=== PATIENT | female | born 1950 | race Caucasian/White ===

== ENCOUNTER 2020-04-20 08:59 | Outpatient (CLI) | payer MEDICARE | END 2020-04-20 09:00 | disposition home or self-care (01) | LOC: DI 08:59 | PROVIDERS: ATTEND Physician Assistant | DX: R01.1 Cardiac murmur, unspecified (principal); I08.1 Rheumatic disorders of both mitral and tricuspid valves; R07.9 Chest pain, unspecified | CPT/HCPCS: 93005; 93306 ==

== ENCOUNTER 2020-04-20 09:25 | Outpatient (CLI) | payer MEDICARE | END 2020-04-20 09:26 | disposition home or self-care (01) | LOC: RT 09:25 | PROVIDERS: ATTEND Physician Assistant | DX: R07.9 Chest pain, unspecified (principal) | CPT/HCPCS: 93005 ==

== ENCOUNTER 2021-05-29 11:14 | Outpatient (CLI) | payer MEDICARE, OTHER ==
[2021-05-29 11:34] LABS: BASOPHILS # (AUTO) 0.1 10^3/uL (0.0-0.1); BASOPHILS % (AUTO) 0.8 %; EOSINOPHILS # (AUTO) 0.1 10^3/uL (0.0-0.7); EOSINOPHILS % (AUTO) 2.2 %; HCT - HEMATOCRIT 37.6 % (37.0-47.0); HGB - HEMOGLOBIN 12.6 g/dL (12.0-16.0); LYMPHOCYTES # (AUTO) 3.1 10^3/uL (1.5-3.5); LYMPHOCYTES % (AUTO) 49.3 %; MEAN CORPUSCULAR HEMOGLOBIN 32.1 pg (27.0-31.0); MEAN CORPUSCULAR HGB CONC 33.5 g/dL (32.0-36.0); MEAN CORPUSCULAR VOLUME 95.7 fL (81.0-99.0); MEAN PLATELET VOLUME 10.2 fL (7.9-10.8); MONOCYTES # (AUTO) 0.6 10^3/uL (0.0-1.0); MONOCYTES % (AUTO) 8.9 %; NEUTROPHILS # (AUTO) 2.5 10^3/uL (1.5-6.6); NEUTROPHILS % (AUTO) 38.6 %; PLT - PLATELET COUNT 329 10^3/uL (130-450); RED BLOOD COUNT 3.93 10^6/uL (4.20-5.40); RED CELL DISTRIBUTION WIDTH 13.2 % (12.0-15.0); WHITE BLOOD COUNT 6.4 x10^3/uL (4.8-10.8)
[2021-05-29 11:52] LABS: ALBUMIN 4.3 g/dL (3.2-5.5); ALBUMIN/GLOBULIN RATIO 1.4 (1.0-2.2); ALKALINE PHOSPHATASE 74 IU/L (42-121); ALT ALANINE AMINOTRANSFERASE 17 IU/L (10-60); AST ASPARTATE AMINOTRANSFERASE 18 IU/L (10-42); BILIRUBIN,TOTAL 0.7 mg/dL (0.2-1.0); BUN - BLOOD UREA NITROGEN 22 mg/dL (6-20); CALCIUM 9.3 mg/dL (8.5-10.3); CARBON DIOXIDE - CO2 25 mmol/L (21-32); CHLORIDE 99 mmol/L (101-111); CHOL/HDL RATIO 3.2 (<4.4); CHOLESTEROL 256 mg/dL; GFR - MDRD 55 (>89); GLUCOSE 102 mg/dL (70-100); HDL CHOLESTEROL 81 mg/dL; LDL CHOLESTEROL,CALCULATED 153 mg/dL; LDL/HDL RATIO 1.9 (<4.4); POTASSIUM 3.6 mmol/L (3.5-5.0); SODIUM 136 mmol/L (135-145); TOTAL PROTEIN 7.4 g/dL (6.7-8.2); TRIGLYCERIDES 109 mg/dL; VLDL CHOLESTEROL 22 mg/dL
[2021-05-29 12:03] LABS: THYROID STIMULATING HORMONE 2.77 uIU/mL (0.34-5.60)
== END 2021-05-29 11:15 | disposition home or self-care (01) ==
LOC: LAB 11:14
PROVIDERS: ATTEND Family Medicine
DX: Z00.00 Encounter for general adult medical examination without abnormal findings (principal)
CPT/HCPCS: 36415; 80053; 80061; 83721; 84443; 85025

== ENCOUNTER 2021-07-11 13:22 | Outpatient (CLI) | payer MEDICARE, OTHER | END 2021-07-11 13:23 | disposition home or self-care (01) | LOC: RT 13:22 | PROVIDERS: ATTEND Internal Medicine | DX: J44.9 Chronic obstructive pulmonary disease, unspecified (principal); Z87.891 Personal history of nicotine dependence | CPT/HCPCS: 94010; 94729 ==

== ENCOUNTER 2021-07-18 13:38 | Outpatient (CLI) | payer MEDICARE, OTHER ==
--- NOTE | 2021-07-18 15:38 | CT Report ---
PROCEDURE: CHEST WO INDICATIONS: COPD TECHNIQUE: Noncontrast 1mm axial images were acquired from the pulmonary apices to the posterior costophrenic an gles. Axial 5 mm soft tissue kernel reconstructions were performed as well as 8 mm axial MIP and cor onal and sagittal 5 mm reformations. For radiation dose reduction, the following was used: automate d exposure control, adjustment of mA and/or kV according to patient size. COMPARISON: None FINDINGS: Image quality: Excellent. Lungs and pleura: No acute air space opacities. No interstitial pulmonary opacities. No air trappin g. No bronchiectasis. No pleural effusions or pneumothorax. Central and peripheral airways are paten t and normal in caliber. Mediastinum: Heart size is normal. Mild calcification of the coronary vasculature. No pericardial ef fusion. No mediastinal adenopathy by size criteria. Thoracic aorta and central pulmonary arteries a re normal in size. Esophagus is normal in caliber. No hiatal hernia. Bones and chest wall: No suspicious bony lesions. No vertebral body compression fractures. No axil latha or supraclavicular adenopathy by size criteria. The thyroid is normal in size and there are no incidental findings. Abdomen: Visualized upper abdominal solid organs and bowel loops appear normal in the absence of con trast. IMPRESSION: 1. No acute process. 2. No evidence of interstitial lung disease. 3. Coronary artery disease. Reviewed by: Garland Leger MD on 07/18/2021 3:36 PM PDT Approved by: Garland Leger MD on 07/18/2021 3:36 PM PDT Station ID: [id number]
== END 2021-07-18 13:39 | disposition home or self-care (01) ==
LOC: DI 13:38
PROVIDERS: ATTEND Internal Medicine
DX: J44.9 Chronic obstructive pulmonary disease, unspecified (principal); I25.10 Atherosclerotic heart disease of native coronary artery without angina pectoris

== ENCOUNTER 2021-12-10 10:12 | Outpatient (CLI) | payer MEDICARE ==
[2021-12-10 10:35] LABS: CALCIUM 9.9 mg/dL (8.5-10.3); CREATININE 0.9 mg/dL (0.4-1.0); POTASSIUM 3.9 mmol/L (3.5-5.0)
== END 2021-12-10 10:13 | disposition home or self-care (01) ==
LOC: LAB 10:12
PROVIDERS: ATTEND Family Medicine
DX: I10 Essential (primary) hypertension (principal)
CPT/HCPCS: 36415; 80048

== ENCOUNTER 2022-01-14 09:31 | Outpatient (CLI) | payer MEDICARE, OTHER ==
--- NOTE | 2022-01-20 09:34 | Mammography Report ---
BILATERAL DIGITAL DIAGNOSTIC MAMMOGRAM 3D/2D WITH MEDIOLATERAL: 01/14/2022 CLINICAL: Palpable left breast lump X 2, marked. Due for screening exam. Baseline exam. No prior exams were available for comparison. Both breasts are heterogeneously dense, which may obscure small masses (category c / 51-75% glandular tissue). There is a focal asymmetry in the right breast central to the nipple in the retroareolar region. There is a 0.9 cm oval mass with a circumscribed margin in the left breast at 11 o'clock 6 cm from th e nipple. This correlates as palpated. There also is a 0.6 cm oval fat containing mass with a circumscribed margin in the left breast at 11 o'clock 9 cm from the nipple. This correlates as palpated. No other significant masses or calcifications are seen in either breast. IMPRESSION: INCOMPLETE: NEEDS ADDITIONAL IMAGING EVALUATION The focal asymmetry in the right breast central to the nipple in the retroareolar region is indetermi ignacio. An ultrasound is recommended. The 0.9 cm oval mass in the left breast at 11 o'clock anterior depth is indeterminate. An ultrasound is recommended. The 0.6 cm oval fat containing mass in the left breast at 11 o'clock middle depth is indeterminate. An ultrasound is recommended. No priors are available for review on 01/14/2022 at 11am. Patient was offered to schedule this exam after priors become available in PACS, but wished to have t his exam performed sooner. Based on the Tyrer Cuzick model (a risk assessment model) the patients lifetime risk is 6.7% and her 10 year risk is 4.6%. According to the ACR, ACS, and NCCN guidelines, an annual breast MRI exam [place] g with mammogram is recommended if the patients lifetime risk is 20% or greater. This exam was interpreted at Station ID: [id number]. NOTE: For mammograms, a report in lay terms will be sent to the patient. Approximately 15% of breast malignancies will not be visualized mammographically. In the management of a palpable breast mass, a negative mammogram must not discourage biopsy of a clinically suspicious lesion. Electronically Signed By: Dustin De La Cruz M.D. lc/:01/15/2022 11:55:21 ACR BI-RADS Category 0: Incomplete 3340F PARENCHYMAL PATTERN: (D) - The breast(s) demonstrate(s) heterogeneously dense fibroglandular parenchy ma. BI-RADS CATEGORY: (0) - 0 Ultrasound [id number] Immediate follow-up LATERALITY: (B)
--- NOTE | 2022-01-20 09:34 | Ultrasound Report ---
LIMITED ULTRASOUND OF LEFT BREAST: 01/14/2022 CLINICAL: Palpable left breast lumps. H/o trauma with bruising to left breast. Pt. states h/o lipomas . Comparison is made to exam dated: 01/14/2022 mammogram - [facility]. Color flow and real-time ultrasound of the left breast 11 o'clock region were performed. Martinez scale images of the real-time examination were reviewed. There is a 0.8 cm x 0.6 cm x 0.6 cm oil cyst vs. circumscribed mass in the left breast at 11 o'clock anterior depth 6 cm from the nipple. There also is a 0.6 cm x 1 cm x 0.5 cm mass in the left breast at 11 o'clock middle depth 9 cm from t he nipple. This mass is hyperechoic. This correlates with mammography findings. IMPRESSION: PROBABLY BENIGN The 0.8 cm x 0.6 cm x 0.6 cm developing oil cyst vs. circumscribed mass in the left breast at 11 o'cl ock anterior depth is probably benign. A follow-up in 3 months is recommended. The 0.6 cm x 1 cm x 0.5 cm mass in the left breast at 11 o'clock middle depth is probably benign. A follow-up in 3 months is recommended. Followup in 3 months is recommended with mammography and ultrasound. Radiologist was informed indirectly from the [place] technologist that the patient had trauma correlating to the palpable abnormalities, suggesting fat necrosis as the etiology. Radiologist Dr. De La Cruz intended to discuss with the patient by telephone regarding the utility of short term 3 month followup, versus biopsy if the history turned out to be discordant. Patient initially declined to speak with radiologist Dr. De La Cruz (remote) and Dr. Mejias (on-site) on day of examination. She left clinic without speaking to a doctor on 01/14. Technologist informed Dr. De La Cruz that the patient would prefer to have a biopsy. A call was made on 01/15 and biopsy was scheduled. This would be an ultrasound guided biopsy of both masses described above. Biopsy is a reasonable option for these findings to exclude malignancy. This exam was interpreted at Station ID: [id number]. Electronically Signed By: Dustin De La Cruz M.D. lc/:01/20/2022 08:40:09 Ultrasound BI-RADS: 3 Probably benign BI-RADS CATEGORY: (3) - 3 Biopsy follow-up [id number] Immediate follow-up LATERALITY: (B)
--- NOTE | 2022-01-20 09:34 | Ultrasound Report ---
LIMITED ULTRASOUND OF RIGHT BREAST: 01/14/2022 CLINICAL: Patient returns today to evaluate an asymmetry in the right breast. Comparison is made to exam dated: 01/14/2022 mammogram - [facility]. Real-time ultrasound of the right breast retroareolar was performed. Martinez scale images of the real-t dony examination were reviewed. IMPRESSION: NEGATIVE There is no sonographic evidence of malignancy. There is no abnormality seen in the right breast to correspond with the mammographic asymmetry in the sub-areolar depth which likely represents normal fibroglandular tissue. Return to annual mammogram screening schedule is recommended. This exam was interpreted at Station ID: [id number]. Electronically Signed By: Dustin De La Cruz M.D. lc/:01/14/2022 12:15:14 Ultrasound BI-RADS: 1 Negative BI-RADS CATEGORY: (1) - 1 RECOMMENDATION: (ANNUAL) - Recommend routine annual screening mammography. [id number] return to screening LATERALITY: (B)
== END 2022-01-14 09:32 | disposition home or self-care (01) ==
LOC: DI 09:31
PROVIDERS: ATTEND Nurse Practitioner Family
DX: N63.22 Unspecified lump in the left breast, upper inner quadrant (principal)

== ENCOUNTER 2022-01-28 09:37 | Outpatient (CLI) | payer MEDICARE, OTHER ==
[2022-01-28] MEDS ORDERED: LIDOCAINE-MPF 1% 5 ML VIAL ONE (09:43)
[2022-01-28] MEDS ORDERED: LIDOCAINE 1%-EPI 1:100000 20 ML MDV ONE (09:43)
[2022-01-28] MEDS ORDERED: LIDOCAINE 1%-EPI 1:100000 20 ML MDV SUBQ ONE (11:16)
[2022-01-28] MEDS ORDERED: LIDOCAINE-MPF 1% 5 ML VIAL TD ONE (11:17)
--- NOTE | 2022-01-30 11:05 | Mammography Report ---
UNILATERAL LEFT DIGITAL DIAGNOSTIC MAMMOGRAM WITH LATEROMEDIAL POST-PROCEDURE IMAGING FOR MARKER PLAC EMENT: 01/28/2022 CLINICAL: Post left breast ultrasound biopsy clip placement imaging. Comparison is made to exams dated: 01/14/2022 mammogram, 01/14/2022 ultrasound, and 01/28/2022 ultra sound biopsy - [facility]. The left breast is heterogeneously dense, which may obscure small masses (category c / 51-75% glandul ar tissue). There is a coil marker clip in the appropriate position in the left breast at 11 o'clock anterior dep th at the biopsy site. IMPRESSION: POST PROCEDURE MAMMOGRAM FOR MARKER PLACEMENT There was a successful marker clip placement in the left breast anterior depth at the biopsy site. This exam was interpreted at Station ID: [id number]. Electronically Signed By: Wicho Mitchell M.D. slc/:01/30/2022 10:00:48 ACR BI-RADS Category Post-procedure mammogram for marker placement PARENCHYMAL PATTERN: (D) - The breast(s) demonstrate(s) heterogeneously dense fibroglandular sheldon holguin. BI-RADS CATEGORY: () - Unspecified - other recall n/a LATERALITY: (B)
--- NOTE | 2022-01-30 11:05 | Ultrasound Report ---
ULTRASOUND GUIDED BIOPSY LEFT BREAST USING VACUUM DEVICE WITH MARKING DEVICE INSERTED AND POST DIGITA L MAMMOGRAPHIC IMAGIN01/28/2022 CLINICAL: Left breast mass. PATIENT CONSENT: Risks (minor bleeding, infection, vasovagal reaction and repeat procedure), benefits and alternatives were explained to the patient and written informed consent was obtained. Correlation is made to exams dated: 01/28/2022 mammogram, 01/14/2022 ultrasound, and 01/14/2022 mamm ogram - [facility]. An ultrasound guided biopsy using real-time ultrasound was performed for the 0.6 cm x 1 cm x 0.5 cm m ass located in the left breast at 11 o'clock middle depth 9 cm from the nipple. This was described o n the previous ultrasound report. The skin was prepped in the usual manner. Local anesthetic was administered to the access site. A s kin lottie was made in the breast. The abnormality was approached from the lateral aspect. A 12 gauge biopsy needle was placed adjacent to the abnormality under ultrasound guidance. Once the needle was documented to be in the correct location, three specimens were obtained using the Curse Encor syste m. A coil clip was inserted into the biopsy cavity. A skin closure strip and a sterile dressing were ap plied to the access site. Post procedure digital mammographic imaging demonstrates the location joss ce at the targeted area and partial removal of the abnormality. The specimens were sent to the [facility] for pathological analysis. IMPRESSION: ULTRASOUND GUIDED BIOPSY BENIGN Ultrasound guided biopsy of the 0.6 cm x 1 cm x 0.5 cm mass in the left breast at 11 o'clock middle d epth 9 cm from the nipple was successful with no apparent post procedure complications. Pathology indicates "Fatty breast tissue with focal fibrous zone." Pathology results are concordant with imaging findings. A follow-up ultrasound in 6 months is recommended to demonstrate stability. Follow-up for the second cyst at 11:00 6 cm from the nipple can also be preformed at that time. This exam was interpreted at Station ID: [id number]. Arcenio Mitchell M.D., jr,slc/:01/30/2022 09:58:59 BI-RADS CATEGORY: () - Ultrasound [id number] 6 month follow-up LATERALITY: (B)
== END 2022-01-28 09:38 | disposition home or self-care (01) ==
LOC: DI 09:37
PROVIDERS: ATTEND Family Medicine
DX: R92.8 Other abnormal and inconclusive findings on diagnostic imaging of breast (principal)
CPT/HCPCS: 19083

== ENCOUNTER 2022-04-04 14:59 | Outpatient (CLI) | payer MEDICARE, OTHER ==
[2022-04-04 15:13] LABS: BILIRUBIN,URINE NEGATIVE (NEGATIVE); GLUCOSE, URINE (UA) NEGATIVE (NEGATIVE); KETONES,URINE (UA) NEGATIVE (NEGATIVE); LEUKOCYTE ESTERASE, URINE NEGATIVE (NEGATIVE); NITRITE,URINE NEGATIVE (NEGATIVE); OCCULT BLOOD,URINE MODERATE (NEGATIVE); PROTEIN,URINE NEGATIVE (NEGATIVE); UROBILINOGEN,URINE 0.2 (NORMAL) E.U./dL (NORMAL)
[2022-04-04 15:14] LABS: CLARITY,URINE CLEAR (CLEAR)
[2022-04-04 15:36] LABS: BACTERIA,URINE None Seen /HPF (None Seen); SQUAMOUS EPITHELIAL CELL,UR FEW Squamous (<= Few); WBC,URINE 0-3 /HPF (0-5)
== END 2022-04-04 15:00 | disposition home or self-care (01) ==
LOC: LAB 14:59
PROVIDERS: ATTEND Family Medicine
DX: N39.8 Other specified disorders of urinary system (principal)
CPT/HCPCS: 81001; 87086

== ENCOUNTER 2023-05-08 14:49 | Outpatient (CLI) | payer MEDICARE, OTHER ==
[2023-05-08 15:06] LABS: BASOPHILS # (AUTO) 0.1 10^3/uL (0.0-0.1); BASOPHILS % (AUTO) 0.6 %; EOSINOPHILS # (AUTO) 0.1 10^3/uL (0.0-0.7); EOSINOPHILS % (AUTO) 1.2 %; HCT - HEMATOCRIT 37.9 % (37.0-47.0); HGB - HEMOGLOBIN 12.7 g/dL (12.0-16.0); LYMPHOCYTES % (AUTO) 46.4 %; MEAN CORPUSCULAR HEMOGLOBIN 32.9 pg (27.0-31.0); MEAN CORPUSCULAR HGB CONC 33.5 g/dL (32.0-36.0); MEAN CORPUSCULAR VOLUME 98.2 fL (81.0-99.0); MEAN PLATELET VOLUME 10.4 fL (7.9-10.8); MONOCYTES # (AUTO) 0.6 10^3/uL (0.0-1.0); MONOCYTES % (AUTO) 7.4 %; NEUTROPHILS # (AUTO) 3.8 10^3/uL (1.5-6.6); NEUTROPHILS % (AUTO) 44.2 %; PLT - PLATELET COUNT 313 10^3/uL (130-450); RED BLOOD COUNT 3.86 10^6/uL (4.20-5.40); RED CELL DISTRIBUTION WIDTH 13.9 % (12.0-15.0); WHITE BLOOD COUNT 8.6 x10^3/uL (4.8-10.8)
[2023-05-08 15:08] LABS: BILIRUBIN,URINE NEGATIVE (NEGATIVE); GLUCOSE, URINE (UA) NEGATIVE (NEGATIVE); KETONES,URINE (UA) NEGATIVE (NEGATIVE); LEUKOCYTE ESTERASE, URINE NEGATIVE (NEGATIVE); NITRITE,URINE NEGATIVE (NEGATIVE); OCCULT BLOOD,URINE MODERATE (NEGATIVE); PROTEIN,URINE NEGATIVE (NEGATIVE); UROBILINOGEN,URINE 0.2 (NORMAL) E.U./dL (NORMAL)
[2023-05-08 15:10] LABS: CLARITY,URINE CLEAR (CLEAR)
[2023-05-08 15:25] LABS: BACTERIA,URINE Few /HPF (None Seen); SQUAMOUS EPITHELIAL CELL,UR FEW Squamous (<= Few); WBC,URINE 0-3 /HPF (0-5)
[2023-05-08 15:31] LABS: ALBUMIN 4.4 g/dL (3.2-5.5); ALBUMIN/GLOBULIN RATIO 1.9 (1.0-2.2); BILIRUBIN,TOTAL 0.5 mg/dL (0.2-1.0); CALCIUM 9.5 mg/dL (8.5-10.3); CREATININE 1.1 mg/dL (0.6-1.3); POTASSIUM 4.1 mmol/L (3.5-4.5); TOTAL PROTEIN 6.7 g/dL (6.4-8.9)
[2023-05-08 15:50] LABS: THYROID STIMULATING HORMONE 3.65 uIU/mL (0.34-5.60)
== END 2023-05-08 14:50 | disposition home or self-care (01) ==
LOC: LAB 14:49
PROVIDERS: ATTEND Family Medicine
DX: I10 Essential (primary) hypertension (principal); F31.0 Bipolar disorder, current episode hypomanic; J44.9 Chronic obstructive pulmonary disease, unspecified; K21.9 Gastro-esophageal reflux disease without esophagitis; R10.9 Unspecified abdominal pain
CPT/HCPCS: 36415; 80053; 81001; 84443; 85025

== ENCOUNTER 2023-07-31 17:40 | Emergency (ER) | payer MEDICARE, OTHER ==
--- NOTE | 2023-07-31 18:32 | ED Physician Documentation ---
History of Present Illness - Stated complaint Stated Complaint: WEAKNESS - Chief complaint Chief Complaint: General - History obtained from History obtained from: Patient, Family - Additonal information Additional information: 73-year-old woman with history of back issues, hypertension, peripheral vascular disease and more recently started semaglutide for weight loss. She has been feeling generally weak and over the last week or so she has had upper back pain especially when she gets in the shower feels sweaty and then passes out. She says she has passed out twice and both times were in the shower and she has been avoiding showering because of that. She recently had some pedal edema but that has improved. Last night she had a brief episode of zinging chest pain. PD PAST MEDICAL HISTORY - Past Medical History Past Medical History: Yes Cardiovascular: Hypertension - Past Surgical History Past Surgical History: Yes Cardiovascular: Other (Stent for PAD RLE) - Allergies Allergies/Adverse Reactions: Allergies Allergy/AdvReac Type Severity Reaction Status Date / Time Penicillins Allergy Anaphylaxis Verified 07/31/23 18:05 - Social History Does the pt smoke?: Yes Smoking Status: Current every day smoker PD ED PE NORMAL - Vitals Vital signs reviewed: Yes - General General: Alert and oriented X 3, No acute distress - HEENT HEENT: PERRL, EOMI - Neck Neck: Supple, no meningeal sign, No bony TTP - Cardiac Cardiac: RRR, No murmur - Respiratory Respiratory: No respiratory distress, Clear bilaterally - Abdomen Abdomen: Non tender - Extremities Extremities: No edema, No calf tenderness / cord, Other (Good pedal pulses) - Neuro Neuro: Alert and oriented X 3, Normal speech Results - Vitals Vitals: Vital Signs - 24 hr 07/31/23 07/31/23 07/31/23 18:00 19:19 19:30 Temperature 36.3 C L Heart Rate 87 60 64 Respiratory 16 16 21 Rate Blood Pressure 146/94 H 159/74 H 175/76 H O2 Saturation 99 100 100 07/31/23 07/31/23 07/31/23 21:54 22:52 23:11 Temperature 36.3 C L Heart Rate 74 67 67 Respiratory 97 H 16 16 Rate Blood Pressure 158/81 H 118/70 118/70 O2 Saturation 97 100 100 Oxygen O2 Source Room air - EKG (time done) 1836 EKG releavant findings:: EKG personally interpreted by author of this note. Relevant findings are: Rate: Rate (enter#) (72) Rhythm: NSR [place]: Normal Intervals: Normal AL QRS: LVH Ischemia: Normal ST segments. No: ST elevation c/w ischemia, ST depression - Labs Labs: Laboratory Tests 07/31/23 07/31/23 07/31/23 19:05 19:05 19:05 WBC 9.0 RBC 4.07 L Hgb 13.2 Hct 39.3 MCV 96.6 MCH 32.4 H MCHC 33.6 RDW 13.1 Plt Count 334 MPV 10.4 Neut # (Auto) 4.7 Lymph # (Auto) 3.5 [place] # (Auto) 0.6 Eos # (Auto) 0.1 Baso # (Auto) 0.1 Absolute Nucleated RBC 0.00 Nucleated RBC % 0.0 Sodium 137 Potassium 3.4 L Chloride 100 L Carbon Dioxide 26 Anion Gap 11.0 BUN 30 H Creatinine 1.5 H Estimated GFR (MDRD) 34 L Glucose 87 Calcium 10.1 Magnesium 1.9 Total Bilirubin 0.5 AST 15 ALT 11 Alkaline Phosphatase 59 Troponin I High Sens 8.8 B-Natriuretic Peptide 25 Total Protein 7.1 Albumin 4.3 Globulin 2.8 Albumin/Globulin Ratio 1.5 - Rads (name of study) CTA chest/abd Relevant Findings:: Final report received, EMP independent interpretation of test PD Medical Decision Making - ED course ED course: She presents with syncopal episodes. They have been reliably in the evening when she is in the shower and are associated with some bad upper back pain. Could be vasovagal from the pain, but also be concerned about a vascular etiology such as dissection. ACS is also a possibility but it would be a very atypical story for that. CBC unremarkable. CMP showing decreased renal function worse from her usual CKD. It is a prerenal pattern so we will give her some IV fluids. She was feeling okay after that. She did want some ibuprofen for her back. The CTA of the chest and abdomen did not show any vascular emergency. I suspect her syncope is multifactorial from vasovagal due to pain as well as vasodilatation in the hot shower with mild dehydration. Departure - Departure Disposition: 01 Home, Self Care Clinical Impression: Syncope, Back pain Condition: Good Record reviewed to determine appropriate education?: Yes Instructions: ED Syncope Vasovagal Comments: I think the passing out episodes are due to a combination of the pain in your back and dehydration. The CAT scans were without vascular emergency. The EKG was not concerning. You were a little dehydrated on your labs. Please drink plenty of fluids. Call your doctor to arrange a follow-up appointment, make the next available appointment. In the interim, return anytime if worse or if new symptoms develop. It may be helpful to take cooler showers in the short-term. Forms: PCP List Discharge Date/Time: 07/31/23 23:12
[2023-07-31] MEDS ORDERED: iohexoL-300 100 ML VIAL ONE ×2 (18:36→19:38)
[2023-07-31] MEDS: SODIUM CHLORIDE 0.9% 1,000 ML IV STA (18:51)
[2023-07-31 19:12] LABS: BASOPHILS # (AUTO) 0.1 10^3/uL (0.0-0.1); BASOPHILS % (AUTO) 0.7 %; EOSINOPHILS # (AUTO) 0.1 10^3/uL (0.0-0.7); EOSINOPHILS % (AUTO) 1.2 %; HCT - HEMATOCRIT 39.3 % (37.0-47.0); HGB - HEMOGLOBIN 13.2 g/dL (12.0-16.0); LYMPHOCYTES # (AUTO) 3.5 10^3/uL (1.5-3.5); LYMPHOCYTES % (AUTO) 39.2 %; MEAN CORPUSCULAR HEMOGLOBIN 32.4 pg (27.0-31.0); MEAN CORPUSCULAR HGB CONC 33.6 g/dL (32.0-36.0); MEAN CORPUSCULAR VOLUME 96.6 fL (81.0-99.0); MEAN PLATELET VOLUME 10.4 fL (7.9-10.8); MONOCYTES # (AUTO) 0.6 10^3/uL (0.0-1.0); MONOCYTES % (AUTO) 6.9 %; NEUTROPHILS # (AUTO) 4.7 10^3/uL (1.5-6.6); NEUTROPHILS % (AUTO) 51.8 %; PLT - PLATELET COUNT 334 10^3/uL (130-450); RED BLOOD COUNT 4.07 10^6/uL (4.20-5.40); RED CELL DISTRIBUTION WIDTH 13.1 % (12.0-15.0)
[2023-07-31 19:20] LABS: MAGNESIUM 1.9 mg/dL (1.7-2.3)
[2023-07-31 19:26] LABS: ALBUMIN 4.3 g/dL (3.2-5.5); ALBUMIN/GLOBULIN RATIO 1.5 (1.0-2.2); BILIRUBIN,TOTAL 0.5 mg/dL (0.2-1.0); CALCIUM 10.1 mg/dL (8.5-10.3); CREATININE 1.5 mg/dL (0.6-1.3); POTASSIUM 3.4 mmol/L (3.5-4.5); TOTAL PROTEIN 7.1 g/dL (6.4-8.9)
[2023-07-31 19:33] LABS: TROPONIN I HIGH SENSITIVITY 8.8 ng/L (2.3-14.8)
[2023-07-31] MEDS: iohexoL-300 100 ML VIAL IVP ONE (21:17)
--- NOTE | 2023-07-31 22:22 | CT Report ---
PROCEDURE: Angio Chest INDICATIONS: syncope/back pain, aorta protocol CONTRAST: 100 ML OMNI 300 TECHNIQUE: After the administration of intravenous contrast, 2 mm axial images were acquired from the pulmonary apices to the posterior costophrenic angles during the arterial phase. In addition, 1 mm lung kernel and 5 mm soft tissue kernel reconstructions were performed. 3-dimensional coronal oblique maximum int ensity projection (MIP) reformats, 8 mm axial MIP, and 5 mm coronal and sagittal MPR reformats were t hen performed through the thorax. For radiation dose reduction, the following was used: automated exp osure control, adjustment of mA and/or kV according to patient size. COMPARISON: CT chest 07/18/2021, same day CT angiogram abdomen pelvis 07/31/2023. FINDINGS: Image quality: Diagnostic. Large vessels: No filling defects within the opacified pulmonary arteries, accounting for motion and contrast timing. No evidence of acute aortic syndrome or aortic aneurysm. Scattered calcified and no ncalcified atherosclerotic plaques of the aortic arch and descending thoracic aorta. Lungs and pleura: No consolidation. No pleural effusions. No pneumothorax. No suspicious pulmonary n odules which require follow up. Mediastinum: Heart size is normal. No pericardial effusion. No large vessel abnormality. No mediastin al adenopathy by size criteria. Mild coronary calcifications. Chest wall and lower neck: Thyroid is unremarkable. No axillary or supraclavicular adenopathy by size . Bones: No aggressive osseous abnormality. Upper Abdomen: Please see separately dictated CT angiogram abdomen pelvis. IMPRESSION: No pulmonary embolus. No acute aortic dissection or aortic aneurysm. Please see separately dictated concurrently acquired CT angiogram of the abdomen and chest. Reviewed by: Giovanna Vázquez MD, PhD on 07/31/2023 10:21 PM PDT Approved by: Giovanna Vázquez MD, PhD on 07/31/2023 10:21 PM PDT Station ID: [id number]
--- NOTE | 2023-07-31 22:27 | CT Report ---
PROCEDURE: Angio Abdomen/Pelvis INDICATIONS: syncope/back pain, aorta protocol CONTRAST: 100 ML OMNI 300 TECHNIQUE: After the administration of intravenous contrast, 2.5 mm thick sections acquired from the diaphragm t o the symphysis. 10 mm maximum-intensity projection (MIP) reformats were then acquired. For radiati on dose reduction, the following was used: automated exposure control, adjustment of mA and/or kV ac cording to patient size. COMPARISON: Same day CT chest angiogram 07/31/2023 FINDINGS: Image quality: Diagnostic Aorta: No aortic dissection or aneurysmal dilatation. Moderate calcified and noncalcified atheroscle rotic plaques. Mesenteric arteries: Celiac trunk, superior and inferior mesenteric arteries appear patent. Right pelvic arteries: Patent. Dense atherosclerotic calcifications of the right common iliac artery . Left pelvic arteries: Patent. Dense atherosclerotic calcifications of the left common iliac artery. Extravascular soft tissues: Small hiatal hernia. Lung bases are clear. Heart size is normal. Liver and spleen are normal in size and enhancement. Gallbladder is without cholelithiasis, wall thickeni ng or pericholecystic fluid. Biliary system is non dilated. Pancreas enhances normally. No adrenal nodules. Atrophic left kidney. No hydronephrosis or nephrolithiasis. Non opacified bowel loops are n ormal in wall thickness and caliber. Colonic diverticulosis without acute inflammation. No free fluid or air. No retroperitoneal or mesenteric adenopathy. No ventral hernias. No suspicious bony lesio ns. No vertebral body compression fractures. IMPRESSION: No aortic dissection or aneurysmal dilatation Reviewed by: Giovanna Vázquez MD, PhD on 07/31/2023 10:25 PM PDT Approved by: Giovanna Vázquez MD, PhD on 07/31/2023 10:25 PM PDT Station ID: [id number]
--- NOTE | 2023-07-31 22:27 | XRAY Report ---
PROCEDURE: Chest 1V INDICATIONS: chest pain TECHNIQUE: One view of the chest was acquired. COMPARISON: None. FINDINGS: Surgical changes and devices: None. Lungs and pleura: No pleural effusions or pneumothorax. Lungs are clear. Mediastinum: Mediastinal contours appear normal. Heart size is enlarged. Bones and chest wall: No suspicious bony lesions. Overlying soft tissues appear unremarkable. IMPRESSION: Cardiomegaly. No focal dense airspace consolidation. Reviewed by: Giovanna Vázquez MD, PhD on 07/31/2023 10:26 PM PDT Approved by: Giovanna Vázquez MD, PhD on 07/31/2023 10:26 PM PDT Station ID: [id number]
[2023-07-31] MEDS: IBUPROFEN 800 MG TABLET PO STA (22:48)
[2023-07-31 22:52] VITALS: BP 118/70; O2SAT 100
== END 2023-07-31 23:12 | disposition home or self-care (01) ==
LOC: ED 17:40
DX: R55 Syncope and collapse (principal); M54.6 Pain in thoracic spine; E86.0 Dehydration; F17.200 Nicotine dependence, unspecified, uncomplicated
CPT/HCPCS: 36415; 71045; 71275; 74174; 80053; 83735; 83880; 84484; 85025; 93005; 96360; 99284; A9270; Q9967

== ENCOUNTER 2023-08-14 14:00 | Outpatient (CLI) | payer MEDICARE, OTHER ==
--- NOTE | 2023-08-17 10:56 | Mammography Report ---
BILATERAL DIGITAL SCREENING MAMMOGRAM 3D/2D: 08/14/2023 CLINICAL: Routine screening. Comparison is made to exams dated: 01/28/2022 mammogram and 01/14/2022 mammogram - [facility]. Both breasts are heterogeneously dense, which may obscure small masses (category c / 51-75% glandular tissue). No significant masses, calcifications, or other findings are seen in either breast. There has been no significant interval change. IMPRESSION: NEGATIVE There is no mammographic evidence of malignancy. A 1 year screening mammogram is recommended. Based on the Tyrer Cuzick model (a risk assessment model) the patient's lifetime risk is 6.0% and her 10 year risk is 4.9%. According to the ACR, ACS, and NCCN guidelines, an annual breast MRI exam [place] g with mammogram is recommended if the patient's lifetime risk is 20% or greater. This exam was interpreted at Station ID: [id number]. NOTE: For mammograms, a report in lay terms will be sent to the patient. Approximately 15% of breast malignancies will not be visualized mammographically. In the management of a palpable breast mass, a negative mammogram must not discourage biopsy of a clinically suspicious lesion. Electronically Signed By: Basil alexander/arlin:08/14/2023 16:52:13 letter sent: No_Letter ACR BI-RADS Category 1: Negative 3341F PARENCHYMAL PATTERN: (D) - The breast(s) demonstrate(s) heterogeneously dense fibroglandular sheldon holguin. BI-RADS CATEGORY: (1) - 1 RECOMMENDATION: (ANNUAL) - Recommend routine annual screening mammography. [id number] 1 year screening LATERALITY: (B)
== END 2023-08-14 14:01 | disposition home or self-care (01) ==
LOC: DI 14:00
PROVIDERS: ATTEND Nurse Practitioner Family
DX: Z12.31 Encounter for screening mammogram for malignant neoplasm of breast (principal); R92.333 Mammographic heterogeneous density, bilateral breasts

== ENCOUNTER 2023-10-24 11:26 | Outpatient (CLI) | payer MEDICARE, OTHER ==
[2023-10-24 12:14] LABS: CALCIUM 10.1 mg/dL (8.5-10.3); CREATININE 1.1 mg/dL (0.6-1.3); POTASSIUM 4.1 mmol/L (3.5-4.5)
== END 2023-10-24 11:27 | disposition home or self-care (01) ==
LOC: LAB 11:26
PROVIDERS: ATTEND Family Medicine
DX: I70.209 Unspecified atherosclerosis of native arteries of extremities, unspecified extremity (principal); I10 Essential (primary) hypertension; M79.89 Other specified soft tissue disorders; I05.9 Rheumatic mitral valve disease, unspecified; R55 Syncope and collapse; R06.02 Shortness of breath; E66.9 Obesity, unspecified
CPT/HCPCS: 36415; 80048